=== PATIENT | male | born 1960 | race Caucasian/White ===

== ENCOUNTER 2020-05-01 16:30 | Inpatient (IN) | payer OTHER ==
[2020-05-01] MEDS ORDERED: ALBUTEROL SO4 2.5/IPRATROPIUM 0.5 INH SOL 3 ML VIAL.NEB. NEB ONE (17:30)
[2020-05-01] MEDS ORDERED: DEXAMETHASONE LIQUID 0.5 MG/5 ML PO ONE (17:46)
[2020-05-01] MEDS ORDERED: DEXAMETHASONE SOD PHOSPHATE 10 MG/1 ML VIAL ONE (17:47)
[2020-05-01] MEDS: ALBUTEROL SO4 0.083% IH SOL 2.5 MG/3 ML VIAL.NEB. NEB SCH ×4 (18:30→19:02)
[2020-05-01] MEDS ORDERED: ALBUTEROL SO4 0.083% IH SOL 2.5 MG/3 ML VIAL.NEB. NEB ONE ×2 (18:37→19:14)
[2020-05-01 20:25] LABS: BASO % 0.5 % (0-2.0); EOS % 17.3 % (0-4.5); HEMATOCRIT 48.6 % (35.4-49); HEMOGLOBIN 16.3 GM/dL (11.7-16.9); LYMPH % 30.9 % (8-40); MCH 30.8 pg (25.7-33.7); MCHC 33.5 g/dl (32.0-35.9); MEAN CELL VOLUME 91.8 fl (80-96); MEAN PLT VOLUME 7.8 fl (7.5-11.1); MONO % 4.4 % (3.8-10.2); NEUT % 46.9 % (42.8-82.8); PLATELET COUNT 266 K/MM3 (134-434); RBC 5.29 M/mm3 (4.00-5.60); RDW 14.3 % (11.9-15.9); WHITE BLOOD COUNT 8.1 K/mm3 (4.0-10.0)
[2020-05-01 20:43] LABS: CHLORIDE 99 mmol/L (98-107); POTASSIUM 4.6 mmol/L (3.5-5.1); SODIUM 134 mmol/L (136-145)
[2020-05-01 20:44] LABS: CALCIUM 9.3 mg/dL (8.5-10.1)
[2020-05-01 20:45] LABS: ANION GAP 5 MMOL/L (8-16); BLOOD UREA NITROGEN 22.8 mg/dL (7-18); CO2 30 mmol/L (21-32); GLUCOSE,RANDOM 93 mg/dL (74-106)
[2020-05-01 20:48] LABS: CREATININE 0.8 mg/dL (0.55-1.3)
[2020-05-02] MEDS ORDERED: ALBUTEROL SO4 2.5/IPRATROPIUM 0.5 INH SOL 3 ML VIAL.NEB. NEB PRN (00:37)
[2020-05-02] MEDS ORDERED: methylPREDNISolone NA SUCC 40 MG/1 ML VIAL ONE (01:05)
[2020-05-02] MEDS: methylPREDNISolone NA SUCC 40 MG/1 ML VIAL IVPUSH SCH ×3 (01:24→18:05)
[2020-05-02] MEDS: BUDESONIDE/FORMETEROL FUMARATE 80/4.5 mcg INHALER IH SCH ×3 (01:24→22:36)
[2020-05-02 06:49] LABS: BASO % 0.1 % (0-2.0); HEMATOCRIT 43.1 % (35.4-49); HEMOGLOBIN 14.8 GM/dL (11.7-16.9); LYMPH % 13.2 % (8-40); MCHC 34.3 g/dl (32.0-35.9); MEAN CELL VOLUME 90.6 fl (80-96); MEAN PLT VOLUME 7.2 fl (7.5-11.1); MONO % 1.2 % (3.8-10.2); NEUT % 85.5 % (42.8-82.8); PLATELET COUNT 263 K/MM3 (134-434); RBC 4.76 M/mm3 (4.00-5.60); RDW 14.3 % (11.9-15.9); WHITE BLOOD COUNT 7.5 K/mm3 (4.0-10.0)
[2020-05-02 07:10] LABS: POTASSIUM 4.4 mmol/L (3.5-5.1)
[2020-05-02 07:13] LABS: CALCIUM 9.3 mg/dL (8.5-10.1)
[2020-05-02 07:14] LABS: BLOOD UREA NITROGEN 23.3 mg/dL (7-18); MAGNESIUM 2.4 mg/dL (1.8-2.4)
[2020-05-02 07:16] LABS: CREATININE 0.9 mg/dL (0.55-1.3)
[2020-05-02 07:17] LABS: PHOSPHOROUS 4.3 mg/dL (2.5-4.9)
[2020-05-02 07:18] LABS: BILIRUBIN,TOTAL 0.5 mg/dL (0.2-1); TOT PROT 7.9 g/dl (6.4-8.2)
[2020-05-02 07:22] LABS: N-TERMINAL BNP 16.1 pg/ml (5-125)
[2020-05-02] MEDS: PANTOPRAZOLE 40 MG TABLET PO SCH (10:00)
[2020-05-02] MEDS: ENOXAPARIN NA (PORCINE) 40 MG/0.4 ML DISP.SYRIN SQ SCH (10:00)
[2020-05-02] MEDS ORDERED: PANTOPRAZOLE 40 MG TABLET ONE (10:41)
[2020-05-02] MEDS ORDERED: methylPREDNISolone NA SUCC 125 MG/2 ML VIAL ONE (10:41)
[2020-05-02] MEDS ORDERED: ENOXAPARIN NA (PORCINE) 40 MG/0.4 ML DISP.SYRIN SQ ONE (10:42)
[2020-05-02] MEDS ORDERED: ALBUTEROL SO4 2.5/IPRATROPIUM 0.5 INH SOL 3 ML VIAL.NEB. NEB ONE (11:23)
[2020-05-02 17:02] VITALS: BMI 29.2
[2020-05-02] MEDS: MONTELUKAST NA 10 MG TABLET PO SCH (21:42)
[2020-05-03] MEDS: methylPREDNISolone NA SUCC 40 MG/1 ML VIAL IVPUSH SCH ×3 (02:00→18:02)
[2020-05-03 09:03] LABS: BASO % 0.1 % (0-2.0); HEMATOCRIT 40.9 % (35.4-49); HEMOGLOBIN 13.8 GM/dL (11.7-16.9); LYMPH % 5.1 % (8-40); MCH 30.6 pg (25.7-33.7); MCHC 33.9 g/dl (32.0-35.9); MEAN CELL VOLUME 90.5 fl (80-96); MEAN PLT VOLUME 7.6 fl (7.5-11.1); MONO % 3.9 % (3.8-10.2); NEUT % 90.9 % (42.8-82.8); PLATELET COUNT 248 K/MM3 (134-434); RBC 4.52 M/mm3 (4.00-5.60)
[2020-05-03] MEDS: ENOXAPARIN NA (PORCINE) 40 MG/0.4 ML DISP.SYRIN SQ SCH (09:12)
[2020-05-03] MEDS: PANTOPRAZOLE 40 MG TABLET PO SCH (09:12)
[2020-05-03] MEDS: BUDESONIDE/FORMETEROL FUMARATE 80/4.5 mcg INHALER IH SCH ×2 (09:13→21:13)
[2020-05-03 09:23] LABS: POTASSIUM 4.3 mmol/L (3.5-5.1)
[2020-05-03 10:07] LABS: BLOOD UREA NITROGEN 25.4 mg/dL (7-18); CALCIUM 8.9 mg/dL (8.5-10.1)
[2020-05-03 10:15] LABS: CREATININE 0.7 mg/dL (0.55-1.3)
[2020-05-03 11:27] LABS: ANISOCYTOSIS 0; MACROCYTOSIS 0; PLATELET ESTIMATE NORMAL
[2020-05-03] MEDS: MONTELUKAST NA 10 MG TABLET PO SCH (21:13)
[2020-05-04] MEDS: methylPREDNISolone NA SUCC 40 MG/1 ML VIAL IVPUSH SCH ×3 (01:28→17:07)
[2020-05-04 07:53] LABS: HEMATOCRIT 43.1 % (35.4-49); HEMOGLOBIN 14.4 GM/dL (11.7-16.9); MCH 30.2 pg (25.7-33.7); MCHC 33.3 g/dl (32.0-35.9); MEAN CELL VOLUME 90.7 fl (80-96); MEAN PLT VOLUME 7.3 fl (7.5-11.1); PLATELET COUNT 247 K/MM3 (134-434); RBC 4.75 M/mm3 (4.00-5.60); WHITE BLOOD COUNT 17.5 K/mm3 (4.0-10.0)
[2020-05-04 08:11] LABS: POTASSIUM 4.2 mmol/L (3.5-5.1)
[2020-05-04 08:37] LABS: BLOOD UREA NITROGEN 20.4 mg/dL (7-18); CALCIUM 8.9 mg/dL (8.5-10.1)
[2020-05-04 08:42] LABS: CREATININE 0.7 mg/dL (0.55-1.3)
[2020-05-04] MEDS: ENOXAPARIN NA (PORCINE) 40 MG/0.4 ML DISP.SYRIN SQ SCH (09:59)
[2020-05-04] MEDS: PANTOPRAZOLE 40 MG TABLET PO SCH (09:59)
[2020-05-04] MEDS: BUDESONIDE/FORMETEROL FUMARATE 80/4.5 mcg INHALER IH SCH ×2 (10:00→21:55)
[2020-05-04] MEDS: MONTELUKAST NA 10 MG TABLET PO SCH (21:55)
[2020-05-04] MEDS ORDERED: MELATONIN 5 MG TABLETS PO ONE (22:15)
[2020-05-05] MEDS: methylPREDNISolone NA SUCC 40 MG/1 ML VIAL IVPUSH SCH ×2 (01:56→10:19)
[2020-05-05 08:33] LABS: HEMATOCRIT 43.6 % (35.4-49); HEMOGLOBIN 14.7 GM/dL (11.7-16.9); MCH 30.3 pg (25.7-33.7); MCHC 33.6 g/dl (32.0-35.9); MEAN CELL VOLUME 90.1 fl (80-96); MEAN PLT VOLUME 7.5 fl (7.5-11.1); PLATELET COUNT 264 K/MM3 (134-434); RBC 4.84 M/mm3 (4.00-5.60); RDW 13.9 % (11.9-15.9); WHITE BLOOD COUNT 15.3 K/mm3 (4.0-10.0)
[2020-05-05 09:01] LABS: POTASSIUM 4.5 mmol/L (3.5-5.1)
[2020-05-05 09:09] LABS: BLOOD UREA NITROGEN 21.6 mg/dL (7-18); CALCIUM 8.8 mg/dL (8.5-10.1)
[2020-05-05 09:12] LABS: CREATININE 0.7 mg/dL (0.55-1.3)
[2020-05-05] MEDS: BUDESONIDE/FORMETEROL FUMARATE 80/4.5 mcg INHALER IH SCH ×2 (10:18→21:51)
[2020-05-05] MEDS: PANTOPRAZOLE 40 MG TABLET PO SCH (10:19)
[2020-05-05] MEDS: ENOXAPARIN NA (PORCINE) 40 MG/0.4 ML DISP.SYRIN SQ SCH (10:19)
[2020-05-05] MEDS: MONTELUKAST NA 10 MG TABLET PO SCH (21:51)
[2020-05-06 06:02] VITALS: BP 134/88; PULSE 57; TEMP 98
[2020-05-06 07:12] LABS: HEMATOCRIT 45.1 % (35.4-49); MCH 30.3 pg (25.7-33.7); MCHC 33.3 g/dl (32.0-35.9); MEAN CELL VOLUME 91.1 fl (80-96); MEAN PLT VOLUME 7.7 fl (7.5-11.1); PLATELET COUNT 250 K/MM3 (134-434); RBC 4.95 M/mm3 (4.00-5.60); RDW 14.1 % (11.9-15.9); WHITE BLOOD COUNT 14.2 K/mm3 (4.0-10.0)
[2020-05-06 07:40] LABS: POTASSIUM 4.2 mmol/L (3.5-5.1)
[2020-05-06 07:47] LABS: CALCIUM 8.5 mg/dL (8.5-10.1)
[2020-05-06 07:48] LABS: BLOOD UREA NITROGEN 25.3 mg/dL (7-18)
[2020-05-06 07:51] LABS: CREATININE 0.7 mg/dL (0.55-1.3)
[2020-05-06] MEDS: ENOXAPARIN NA (PORCINE) 40 MG/0.4 ML DISP.SYRIN SQ SCH (09:47)
[2020-05-06] MEDS: BUDESONIDE/FORMETEROL FUMARATE 80/4.5 mcg INHALER IH SCH (09:47)
[2020-05-06] MEDS: PANTOPRAZOLE 40 MG TABLET PO SCH (09:47)
[2020-05-06] MEDS ORDERED: methylPREDNISolone NA SUCC 40 MG/1 ML VIAL IVPUSH SCH (10:00)
== END 2020-05-06 14:11 | disposition home or self-care (01) | DRG 141 ==
LOC: JER 16:30 → JERBED 18:53 → EDBD 18:53 → J8W 05-02 15:41
PROVIDERS: ADMIT Internal Medicine; ATTEND Internal Medicine
DX: J45.51 Severe persistent asthma with (acute) exacerbation (principal); J82.83 Eosinophilic asthma; R06.02 Shortness of breath
CPT/HCPCS: 36415; 71045-TC-FY; 71250-TC; 80048; 80053; 83735; 83880; 84100; 84484; 85025; 85027; 93005; 93010; 93306-TC; 94761; 99285-25; C9803; U0003

== ENCOUNTER 2021-07-04 18:13 | Inpatient (IN) | payer OTHER ==
[2021-07-04] MEDS ORDERED: ALBUTEROL SO4 2.5/IPRATROPIUM 0.5 INH SOL 3 ML VIAL.NEB. NEB ONE ×2 (20:28→20:30)
[2021-07-04] MEDS ORDERED: methylPREDNISolone NA SUCC 125 MG/2 ML VIAL IVPB ONE (20:28)
[2021-07-04] MEDS ORDERED: methylPREDNISolone NA SUCC 125 MG/2 ML VIAL ONE (20:31)
[2021-07-04 21:30] LABS: BASO % 0.4 % (0-2.0); EOS % 15.3 % (0-4.5); HEMATOCRIT 41.8 % (35.4-49); HEMOGLOBIN 14.1 GM/dL (11.7-16.9); LYMPH % 19.4 % (8-40); MCH 29.7 pg (25.7-33.7); MCHC 33.7 g/dl (32.0-35.9); MEAN CELL VOLUME 88.3 fl (80-96); MEAN PLT VOLUME 6.5 fl (7.5-11.1); MONO % 8.9 % (3.8-10.2); PLATELET COUNT 242 10^3/uL (134-434); RBC 4.73 M/mm3 (4.00-5.60); RDW 14.6 % (11.9-15.9); WHITE BLOOD COUNT 8.5 K/mm3 (4.0-10.0)
[2021-07-04 21:46] LABS: ALBUMIN 3.9 g/dl (3.4-5.0); BLOOD UREA NITROGEN 19.7 mg/dL (7-18)
[2021-07-04 21:49] LABS: CREATININE 0.6 mg/dL (0.55-1.3)
[2021-07-04 21:51] LABS: BILIRUBIN,TOTAL 0.2 mg/dL (0.2-1); TOT PROT 7.8 g/dl (6.4-8.2)
[2021-07-04 21:54] LABS: N-TERMINAL BNP 10.3 pg/ml (5-125)
[2021-07-04] MEDS ORDERED: PIPERACILLIN/TAZOB 3.375 GM 3.375 GM in DEXTROSE 5%-WATER - 50 ML IVPB ONE (23:39)
[2021-07-04] MEDS ORDERED: VANCOMYCIN 1 GM in D5W (PRE-DOCKED) 1,000 MG/250 ML IVPB ONE (23:39)
[2021-07-05] MEDS ORDERED: VANCOMYCIN 1 GRAM (PRE-DOCKED) 1,000 MG/250 ML BAG IVPB ONE (00:56)
[2021-07-05] MEDS ORDERED: PIPERACILLIN/TAZOB 3.375 GM 3.375 GM/50 ML BAG IVPB ONE (00:56)
[2021-07-05 01:10] LABS: URINE APPEARANCE CLEAR; URINE BILIRUBIN NEGATIVE (NEGATIVE); URINE COLOR YELLOW; URINE GLUCOSE (UA) NEGATIVE (NEGATIVE); URINE KETONE NEGATIVE (NEGATIVE); URINE LEUK ESTERASE NEGATIVE (NEGATIVE); URINE NITRITE NEGATIVE (NEGATIVE); URINE PROTEIN NEGATIVE (NEGATIVE); URINE UROBILINOGEN 0.2 mg/dL (0.2-1.0)
[2021-07-05] MEDS ORDERED: ALBUTEROL SO4 HFA INHALER IH PRN (02:14)
[2021-07-05] MEDS: ALBUTEROL SO4 2.5/IPRATROPIUM 0.5 INH SOL 3 ML VIAL.NEB. NEB SCH ×4 (04:13→23:49)
[2021-07-05 07:33] LABS: BASO % 0.1 % (0-2.0); EOS % 0.1 % (0-4.5); HEMATOCRIT 38.8 % (35.4-49); HEMOGLOBIN 13.1 GM/dL (11.7-16.9); LYMPH % 13.3 % (8-40); MCH 29.5 pg (25.7-33.7); MCHC 33.7 g/dl (32.0-35.9); MEAN CELL VOLUME 87.7 fl (80-96); MEAN PLT VOLUME 6.4 fl (7.5-11.1); MONO % 1.5 % (3.8-10.2); PLATELET COUNT 230 10^3/uL (134-434); RBC 4.43 M/mm3 (4.00-5.60); RDW 14.6 % (11.9-15.9); WHITE BLOOD COUNT 7.8 K/mm3 (4.0-10.0)
[2021-07-05 07:59] LABS: CALCIUM 8.4 mg/dL (8.5-10.1)
[2021-07-05 08:00] LABS: ALBUMIN 3.4 g/dl (3.4-5.0); MAGNESIUM 2.1 mg/dL (1.8-2.4)
[2021-07-05 08:01] LABS: PHOSPHOROUS 3.5 mg/dL (2.5-4.9)
[2021-07-05 08:02] LABS: CREATININE 0.6 mg/dL (0.55-1.3)
[2021-07-05 08:03] LABS: BILIRUBIN,TOTAL 0.8 mg/dL (0.2-1); TOT PROT 6.9 g/dl (6.4-8.2)
[2021-07-05] MEDS ORDERED: LORATADINE 10 MG TABLET ONE (09:09)
[2021-07-05] MEDS ORDERED: methylPREDNISolone NA SUCC 40 MG/1 ML VIAL ONE (09:10)
[2021-07-05] MEDS ORDERED: ENOXAPARIN NA (PORCINE) 40 MG/0.4 ML DISP.SYRIN SQ ONE (09:10)
[2021-07-05] MEDS: LORATADINE 10 MG TABLET PO SCH (09:22)
[2021-07-05] MEDS: ENOXAPARIN NA (PORCINE) 40 MG/0.4 ML DISP.SYRIN SQ SCH (09:22)
[2021-07-05] MEDS: methylPREDNISolone NA SUCC 40 MG/1 ML VIAL IVPUSH SCH ×2 (09:23→17:32)
[2021-07-05 11:32] VITALS: BMI 36.5
[2021-07-05] MEDS: CLOTRIMAZOLE 1% CREAM TP SCH ×2 (12:34→21:07)
[2021-07-05] MEDS: BUDESONIDE/FORMETEROL FUMARATE 160/4.5 mcg INHALER IH SCH ×2 (12:34→21:07)
[2021-07-05] MEDS: LACTATED RINGERS SOLUTION 1,000 ML/1,000 ML INFUS.BAG IV SCH (17:32)
[2021-07-05] MEDS: MONTELUKAST NA 10 MG TABLET PO SCH (21:07)
[2021-07-06] MEDS: methylPREDNISolone NA SUCC 40 MG/1 ML VIAL IVPUSH SCH ×3 (02:03→17:27)
[2021-07-06] MEDS: LACTATED RINGERS SOLUTION 1,000 ML/1,000 ML INFUS.BAG IV SCH ×2 (05:36→22:15)
[2021-07-06] MEDS: ALBUTEROL SO4 2.5/IPRATROPIUM 0.5 INH SOL 3 ML VIAL.NEB. NEB SCH ×5 (07:55→19:22)
[2021-07-06 09:21] LABS: BASO % 0.1 % (0-2.0); HEMATOCRIT 39.8 % (35.4-49); LYMPH % 6.1 % (8-40); MCHC 32.7 g/dl (32.0-35.9); MEAN CELL VOLUME 88.7 fl (80-96); MONO % 4.2 % (3.8-10.2); NEUT % 89.6 % (42.8-82.8); PLATELET COUNT 263 10^3/uL (134-434); RBC 4.48 M/mm3 (4.00-5.60); RDW 14.9 % (11.9-15.9); WHITE BLOOD COUNT 16.7 K/mm3 (4.0-10.0)
[2021-07-06 10:00] LABS: CALCIUM 8.6 mg/dL (8.5-10.1)
[2021-07-06 10:01] LABS: ALBUMIN 3.5 g/dl (3.4-5.0); BLOOD UREA NITROGEN 18.2 mg/dL (7-18); MAGNESIUM 2.4 mg/dL (1.8-2.4)
[2021-07-06 10:04] LABS: CREATININE 0.7 mg/dL (0.55-1.3); PHOSPHOROUS 3.4 mg/dL (2.5-4.9)
[2021-07-06 10:06] LABS: TOT PROT 7.2 g/dl (6.4-8.2)
[2021-07-06 10:11] LABS: BILIRUBIN,TOTAL 0.5 mg/dL (0.2-1)
[2021-07-06] MEDS: ENOXAPARIN NA (PORCINE) 40 MG/0.4 ML DISP.SYRIN SQ SCH (11:08)
[2021-07-06] MEDS: LORATADINE 10 MG TABLET PO SCH (11:08)
[2021-07-06] MEDS: BUDESONIDE/FORMETEROL FUMARATE 160/4.5 mcg INHALER IH SCH ×2 (11:09→22:33)
[2021-07-06] MEDS: CLOTRIMAZOLE 1% CREAM TP SCH ×2 (11:09→22:15)
[2021-07-06] MEDS: INSULIN SLIDING SCALE (NOVOLOG) 1 VIAL SQ SCH ×3 (12:09→22:37)
[2021-07-06] MEDS: FLUCONAZOLE 100 MG TABLET (UD) PO SCH (22:15)
[2021-07-06] MEDS: MONTELUKAST NA 10 MG TABLET PO SCH (22:15)
[2021-07-07] MEDS: ALBUTEROL SO4 2.5/IPRATROPIUM 0.5 INH SOL 3 ML VIAL.NEB. NEB SCH ×5 (00:05→20:13)
[2021-07-07] MEDS: methylPREDNISolone NA SUCC 40 MG/1 ML VIAL IVPUSH SCH ×3 (01:12→17:28)
[2021-07-07] MEDS: INSULIN SLIDING SCALE (NOVOLOG) 1 VIAL SQ SCH ×4 (06:44→23:44)
[2021-07-07 09:41] LABS: HEMATOCRIT 40.6 % (35.4-49); HEMOGLOBIN 13.2 GM/dL (11.7-16.9); LYMPH % 8.8 % (8-40); MCH 28.7 pg (25.7-33.7); MCHC 32.4 g/dl (32.0-35.9); MEAN CELL VOLUME 88.7 fl (80-96); MEAN PLT VOLUME 6.9 fl (7.5-11.1); MONO % 3.9 % (3.8-10.2); NEUT % 87.3 % (42.8-82.8); PLATELET COUNT 270 10^3/uL (134-434); RBC 4.57 M/mm3 (4.00-5.60); RDW 14.8 % (11.9-15.9); WHITE BLOOD COUNT 17.3 K/mm3 (4.0-10.0)
[2021-07-07 10:38] LABS: CALCIUM 8.7 mg/dL (8.5-10.1)
[2021-07-07 10:39] LABS: ALBUMIN 3.7 g/dl (3.4-5.0); BLOOD UREA NITROGEN 18.3 mg/dL (7-18); MAGNESIUM 2.7 mg/dL (1.8-2.4)
[2021-07-07 10:42] LABS: CREATININE 0.6 mg/dL (0.55-1.3); PHOSPHOROUS 3.2 mg/dL (2.5-4.9)
[2021-07-07 10:43] LABS: TOT PROT 7.4 g/dl (6.4-8.2)
[2021-07-07 10:44] LABS: BILIRUBIN,TOTAL 0.5 mg/dL (0.2-1)
[2021-07-07] MEDS: LORATADINE 10 MG TABLET PO SCH (10:44)
[2021-07-07] MEDS: FLUCONAZOLE 100 MG TABLET (UD) PO SCH (10:44)
[2021-07-07] MEDS: ENOXAPARIN NA (PORCINE) 40 MG/0.4 ML DISP.SYRIN SQ SCH (10:45)
[2021-07-07] MEDS: LACTATED RINGERS SOLUTION 1,000 ML/1,000 ML INFUS.BAG IV SCH ×2 (11:00→13:37)
[2021-07-07] MEDS: BUDESONIDE/FORMETEROL FUMARATE 160/4.5 mcg INHALER IH SCH ×2 (11:01→23:45)
[2021-07-07] MEDS: CLOTRIMAZOLE 1% CREAM TP SCH ×4 (11:02→23:48)
[2021-07-07] MEDS: MONTELUKAST NA 10 MG TABLET PO SCH (23:45)
[2021-07-08] MEDS: ALBUTEROL SO4 2.5/IPRATROPIUM 0.5 INH SOL 3 ML VIAL.NEB. NEB SCH ×5 (00:22→19:46)
[2021-07-08] MEDS: methylPREDNISolone NA SUCC 40 MG/1 ML VIAL IVPUSH SCH ×3 (02:14→17:13)
[2021-07-08] MEDS: INSULIN SLIDING SCALE (NOVOLOG) 1 VIAL SQ SCH ×4 (06:59→23:07)
[2021-07-08 08:58] LABS: HEMATOCRIT 39.7 % (35.4-49); HEMOGLOBIN 13.1 GM/dL (11.7-16.9); MCH 28.9 pg (25.7-33.7); MCHC 32.9 g/dl (32.0-35.9); MEAN CELL VOLUME 87.9 fl (80-96); PLATELET COUNT 263 10^3/uL (134-434); RBC 4.52 M/mm3 (4.00-5.60); RDW 15.1 % (11.9-15.9); WHITE BLOOD COUNT 14.5 K/mm3 (4.0-10.0)
[2021-07-08 09:10] LABS: ALBUMIN 3.4 g/dl (3.4-5.0); BLOOD UREA NITROGEN 17.6 mg/dL (7-18)
[2021-07-08 09:11] LABS: CALCIUM 8.5 mg/dL (8.5-10.1)
[2021-07-08 09:12] LABS: MAGNESIUM 2.7 mg/dL (1.8-2.4)
[2021-07-08 09:13] LABS: CREATININE 0.6 mg/dL (0.55-1.3); PHOSPHOROUS 3.2 mg/dL (2.5-4.9)
[2021-07-08 09:14] LABS: BILIRUBIN,TOTAL 0.5 mg/dL (0.2-1); TOT PROT 6.9 g/dl (6.4-8.2)
[2021-07-08 10:18] LABS: ANISOCYTOSIS 1+; MACROCYTOSIS 0; PLATELET ESTIMATE NORMAL
[2021-07-08] MEDS: FLUCONAZOLE 100 MG TABLET (UD) PO SCH (10:25)
[2021-07-08] MEDS: CLOTRIMAZOLE 1% CREAM TP SCH ×2 (10:25→23:08)
[2021-07-08] MEDS: ENOXAPARIN NA (PORCINE) 40 MG/0.4 ML DISP.SYRIN SQ SCH (10:25)
[2021-07-08] MEDS: LORATADINE 10 MG TABLET PO SCH (10:25)
[2021-07-08] MEDS: BUDESONIDE/FORMETEROL FUMARATE 160/4.5 mcg INHALER IH SCH ×2 (10:26→23:08)
[2021-07-08] MEDS ORDERED: ALBUTEROL SO4 0.083% IH SOL 2.5 MG/3 ML VIAL.NEB. NEB PRN (20:24)
[2021-07-08] MEDS: MONTELUKAST NA 10 MG TABLET PO SCH (23:07)
[2021-07-09] MEDS: methylPREDNISolone NA SUCC 40 MG/1 ML VIAL IVPUSH SCH ×3 (01:45→18:36)
[2021-07-09] MEDS: INSULIN SLIDING SCALE (NOVOLOG) 1 VIAL SQ SCH ×4 (06:34→21:45)
[2021-07-09] MEDS: ALBUTEROL SO4 2.5/IPRATROPIUM 0.5 INH SOL 3 ML VIAL.NEB. NEB SCH ×4 (07:25→19:41)
[2021-07-09] MEDS: CLOTRIMAZOLE 1% CREAM TP SCH ×2 (11:42→21:45)
[2021-07-09] MEDS: FLUCONAZOLE 100 MG TABLET (UD) PO SCH (11:42)
[2021-07-09] MEDS: ENOXAPARIN NA (PORCINE) 40 MG/0.4 ML DISP.SYRIN SQ SCH (11:42)
[2021-07-09] MEDS: LORATADINE 10 MG TABLET PO SCH (11:43)
[2021-07-09] MEDS: BUDESONIDE/FORMETEROL FUMARATE 160/4.5 mcg INHALER IH SCH ×2 (11:48→21:45)
[2021-07-09] MEDS: MONTELUKAST NA 10 MG TABLET PO SCH (21:45)
[2021-07-10] MEDS: methylPREDNISolone NA SUCC 40 MG/1 ML VIAL IVPUSH SCH ×3 (01:18→17:33)
[2021-07-10] MEDS: INSULIN SLIDING SCALE (NOVOLOG) 1 VIAL SQ SCH ×4 (06:00→21:13)
[2021-07-10] MEDS: ALBUTEROL SO4 2.5/IPRATROPIUM 0.5 INH SOL 3 ML VIAL.NEB. NEB SCH ×4 (08:52→20:31)
[2021-07-10] MEDS: LORATADINE 10 MG TABLET PO SCH (09:09)
[2021-07-10] MEDS: ENOXAPARIN NA (PORCINE) 40 MG/0.4 ML DISP.SYRIN SQ SCH (09:09)
[2021-07-10] MEDS: BUDESONIDE/FORMETEROL FUMARATE 160/4.5 mcg INHALER IH SCH ×2 (09:09→21:15)
[2021-07-10] MEDS: CLOTRIMAZOLE 1% CREAM TP SCH ×2 (09:10→21:12)
[2021-07-10 14:41] LABS: ARTERIAL BLOOD GAS BASE EXCESS 0.5 mmol/L (-2-2); ARTERIAL BLOOD GAS PO2 73.3 mmHg (80-100); ARTERIAL BLOOD GAS pH 7.414 (7.350-7.450)
[2021-07-10 14:42] LABS: ALLENS TEST POSITIVE
[2021-07-10] MEDS: TIOTROPIUM BROMIDE 2.5 MCG (SPIRIVA) RESPIMAT INHALER IH SCH (21:12)
[2021-07-10] MEDS: MONTELUKAST NA 10 MG TABLET PO SCH (21:14)
[2021-07-11] MEDS: methylPREDNISolone NA SUCC 40 MG/1 ML VIAL IVPUSH SCH ×2 (01:31→09:11)
[2021-07-11] MEDS: INSULIN SLIDING SCALE (NOVOLOG) 1 VIAL SQ SCH ×3 (06:10→17:04)
[2021-07-11] MEDS: ALBUTEROL SO4 2.5/IPRATROPIUM 0.5 INH SOL 3 ML VIAL.NEB. NEB SCH ×3 (08:45→16:22)
[2021-07-11] MEDS: ENOXAPARIN NA (PORCINE) 40 MG/0.4 ML DISP.SYRIN SQ SCH (09:11)
[2021-07-11] MEDS: LORATADINE 10 MG TABLET PO SCH (09:11)
[2021-07-11] MEDS: TIOTROPIUM BROMIDE 2.5 MCG (SPIRIVA) RESPIMAT INHALER IH SCH (09:13)
[2021-07-11] MEDS: BUDESONIDE/FORMETEROL FUMARATE 160/4.5 mcg INHALER IH SCH (09:14)
[2021-07-11] MEDS: CLOTRIMAZOLE 1% CREAM TP SCH (09:15)
[2021-07-11 13:30] VITALS: BP 147/98; PULSE 86; TEMP 98.9
[2021-07-12] MEDS ORDERED: predniSONE 20 MG TABLET (UD) PO SCH (10:00)
== END 2021-07-11 17:06 | disposition home or self-care (01) | DRG 142 ==
LOC: JER 18:13 → JERBED 07-05 01:30 → J5S 07-05 11:02
PROVIDERS: ADMIT Hospitalist; ATTEND Internal Medicine
DX: J82.83 Eosinophilic asthma (principal); E11.43 Type 2 diabetes mellitus with diabetic autonomic (poly)neuropathy; M87.059 Idiopathic aseptic necrosis of unspecified femur; E11.9 Type 2 diabetes mellitus without complications; N50.89 Other specified disorders of the male genital organs; E66.9 Obesity, unspecified; Z68.36 Body mass index [BMI] 36.0-36.9, adult; B35.6 Tinea cruris; K31.84 Gastroparesis
CPT/HCPCS: 36415; 36600; 71045-TC-FY; 72193-TC; 76870-TC; 80053; 81003; 82803; 82962; 83036; 83605; 83735; 83880; 84100; 84484; 85025; 87086; 93005; 93010; 93970-TC; 94150; 94640; 94761; 99285-25; C9803-CS; Q9967; U0003; U0005

== ENCOUNTER 2021-07-23 19:57 | Emergency (ER) | payer OTHER ==
[2021-07-23 20:21] VITALS: BP 125/75; PULSE 65; BMI 35.2
== END 2021-07-24 01:02 | disposition home or self-care (01) ==
LOC: JER 19:57
DX: M25.562 Pain in left knee (principal)
CPT/HCPCS: 73562-TC-LT-FY; 93971-TC; 99284-25

== ENCOUNTER 2022-02-17 18:28 | Inpatient (IN) | payer OTHER ==
[2022-02-17 18:44] VITALS: BMI 35.2
[2022-02-17] MEDS ORDERED: VANCOMYCIN 1 GM in D5W (PRE-DOCKED) 1,000 MG/250 ML IVPB ONE (19:52)
[2022-02-17] MEDS ORDERED: PIPERACILLIN/TAZOB 3.375 GM 3.375 GM in DEXTROSE 5%-WATER - 50 ML IVPB ONE (19:52)
[2022-02-17] MEDS ORDERED: ACETAMINOPHEN 500 MG TABLET (FP) PO ONE (19:57)
[2022-02-17] MEDS ORDERED: ALBUTEROL SO4 2.5/IPRATROPIUM 0.5 INH SOL 3 ML VIAL.NEB. NEB ONE (20:09)
[2022-02-17] MEDS ORDERED: VANCOMYCIN/WATER FOR INJ (PEG) 1,000 MG/200 ML BAG IVPB ONE (20:09)
[2022-02-17] MEDS ORDERED: PIPERACILLIN/TAZOB 3.375 GM 3.375 GM/50 ML BAG IVPB ONE (20:10)
[2022-02-17] MEDS: ALBUTEROL SO4 2.5/IPRATROPIUM 0.5 INH SOL 3 ML VIAL.NEB. NEB SCH ×2 (20:19→20:59)
[2022-02-17] MEDS ORDERED: ACETAMINOPHEN 500 MG TABLET (FP) ONE (20:20)
[2022-02-17 20:31] LABS: BASO % 0.3 % (0-2.0); EOS % 3.1 % (0-4.5); HEMATOCRIT 40.1 % (35.4-49); HEMOGLOBIN 12.9 GM/dL (11.7-16.9); INR 1.16 (0.83-1.09); MCH 28.4 pg (25.7-33.7); MCHC 32.3 g/dl (32.0-35.9); MEAN CELL VOLUME 88.1 fl (80-96); MEAN PLT VOLUME 6.6 fl (7.5-11.1); NEUT % 73.6 % (42.8-82.8); PLATELET COUNT 331 10^3/uL (134-434); PROTHROMBIN TIME (PATIENT) 13.4 SEC (9.7-13.0); RBC 4.55 M/mm3 (4.00-5.60); RDW 14.7 % (11.9-15.9); WHITE BLOOD COUNT 12.4 K/mm3 (4.0-10.0)
[2022-02-17 20:48] LABS: ALBUMIN 3.8 g/dl (3.4-5.0); CALCIUM 8.9 mg/dL (8.5-10.1)
[2022-02-17 20:51] LABS: CREATININE 0.7 mg/dL (0.55-1.3)
[2022-02-17 20:53] LABS: BILIRUBIN,TOTAL 0.7 mg/dL (0.2-1); TOT PROT 8.1 g/dl (6.4-8.2)
[2022-02-17] MEDS ORDERED: methylPREDNISolone NA SUCC 125 MG/2 ML VIAL IVPUSH ONE (23:08)
[2022-02-17] MEDS ORDERED: methylPREDNISolone NA SUCC 125 MG/2 ML VIAL ONE (23:14)
[2022-02-18] MEDS ORDERED: CLINDAMYCIN 600MG PREMIX IVPB 600 MG/50 ML BAG IVPB ONE ×2 (02:38→08:37)
[2022-02-18] MEDS: CLINDAMYCIN 600MG PREMIX IVPB 600 MG/50 ML BAG IVPB SCH ×2 (02:40→09:05)
[2022-02-18] MEDS ORDERED: PIPERACILLIN/TAZOB 3.375 GM 3.375 GM/50 ML BAG IVPB ONE ×2 (02:54→08:37)
[2022-02-18] MEDS: PIPERACILLIN/TAZOB 3.375 GM 3.375 GM in DEXTROSE 5%-WATER - 50 ML IVPB SCH ×3 (03:05→18:07)
[2022-02-18] MEDS ORDERED: ALBUTEROL SO4 2.5/IPRATROPIUM 0.5 INH SOL 3 ML VIAL.NEB. NEB PRN (04:00)
[2022-02-18] MEDS ORDERED: ACETAMINOPHEN 325 MG TABLET (FP) PO PRN (06:45)
[2022-02-18] MEDS ORDERED: ALBUTEROL SO4 HFA INHALER IH PRN (06:46)
[2022-02-18] MEDS: INSULIN SLIDING SCALE (NOVOLOG) 1 VIAL SQ SCH ×4 (08:32→22:43)
[2022-02-18] MEDS ORDERED: ALBUTEROL SO4 2.5/IPRATROPIUM 0.5 INH SOL 3 ML VIAL.NEB. NEB ONE ×3 (08:36→16:54)
[2022-02-18] MEDS ORDERED: ENOXAPARIN NA (PORCINE) 40 MG/0.4 ML DISP.SYRIN SQ ONE (08:37)
[2022-02-18 08:47] LABS: BASO % 0.1 % (0-2.0); HEMATOCRIT 39.3 % (35.4-49); HEMOGLOBIN 12.9 GM/dL (11.7-16.9); LYMPH % 13.7 % (8-40); MCH 29.2 pg (25.7-33.7); MCHC 32.9 g/dl (32.0-35.9); MEAN CELL VOLUME 88.8 fl (80-96); MEAN PLT VOLUME 6.8 fl (7.5-11.1); MONO % 2.4 % (3.8-10.2); NEUT % 83.8 % (42.8-82.8); PLATELET COUNT 311 10^3/uL (134-434); RBC 4.42 M/mm3 (4.00-5.60); RDW 14.3 % (11.9-15.9); WHITE BLOOD COUNT 9.2 K/mm3 (4.0-10.0)
[2022-02-18 08:59] LABS: BLOOD UREA NITROGEN 15.7 mg/dL (7-18)
[2022-02-18 09:00] LABS: CALCIUM 8.8 mg/dL (8.5-10.1); MAGNESIUM 2.5 mg/dL (1.8-2.4)
[2022-02-18 09:01] LABS: ALBUMIN 3.2 g/dl (3.4-5.0)
[2022-02-18 09:03] LABS: CREATININE 0.6 mg/dL (0.55-1.3)
[2022-02-18 09:04] LABS: PHOSPHOROUS 3.9 mg/dL (2.5-4.9)
[2022-02-18 09:05] LABS: BILIRUBIN,TOTAL 0.8 mg/dL (0.2-1); TOT PROT 7.3 g/dl (6.4-8.2)
[2022-02-18] MEDS: ALBUTEROL SO4 2.5/IPRATROPIUM 0.5 INH SOL 3 ML VIAL.NEB. NEB SCH ×4 (09:05→20:39)
[2022-02-18] MEDS: CLOTRIMAZOLE 1% CREAM TP SCH ×2 (09:15→22:44)
[2022-02-18] MEDS: ENOXAPARIN NA (PORCINE) 40 MG/0.4 ML DISP.SYRIN SQ SCH (09:20)
[2022-02-18] MEDS: BUDESONIDE/FORMETEROL FUMARATE 80/4.5 mcg INHALER IH SCH ×2 (09:52→22:45)
[2022-02-18] MEDS ORDERED: methylPREDNISolone NA SUCC 40 MG/1 ML VIAL IVPUSH SCH ×2 (10:00)
[2022-02-18] MEDS ORDERED: methylPREDNISolone NA SUCC 40 MG/1 ML VIAL IVPB SCH (10:00)
[2022-02-18] MEDS: ATORVASTATIN CA 20 MG TABLET (FP) PO SCH (22:44)
[2022-02-19] MEDS ORDERED: PIPERACILLIN/TAZOB 3.375 GM 3.375 GM in DEXTROSE 5%-WATER - 50 ML IVPB SCH (02:00)
[2022-02-19] MEDS: PIPERACILLIN/TAZOB 3.375 GM 3.375 GM in DEXTROSE 5%-WATER - 50 ML IVPB SCH ×3 (02:20→18:17)
[2022-02-19] MEDS: INSULIN SLIDING SCALE (NOVOLOG) 1 VIAL SQ SCH ×4 (06:04→21:25)
[2022-02-19] MEDS: ALBUTEROL SO4 2.5/IPRATROPIUM 0.5 INH SOL 3 ML VIAL.NEB. NEB SCH ×4 (08:51→20:38)
[2022-02-19 10:00] LABS: BASO % 0.1 % (0-2.0); EOS % 0.1 % (0-4.5); HEMATOCRIT 37.8 % (35.4-49); HEMOGLOBIN 12.4 GM/dL (11.7-16.9); LYMPH % 10.9 % (8-40); MCH 28.8 pg (25.7-33.7); MCHC 32.7 g/dl (32.0-35.9); MEAN CELL VOLUME 88.1 fl (80-96); MONO % 8.3 % (3.8-10.2); NEUT % 80.6 % (42.8-82.8); PLATELET COUNT 328 10^3/uL (134-434); RBC 4.29 M/mm3 (4.00-5.60); RDW 14.7 % (11.9-15.9); WHITE BLOOD COUNT 14.8 K/mm3 (4.0-10.0)
[2022-02-19 10:22] LABS: CALCIUM 8.8 mg/dL (8.5-10.1)
[2022-02-19 10:23] LABS: MAGNESIUM 2.5 mg/dL (1.8-2.4)
[2022-02-19 10:26] LABS: CREATININE 0.7 mg/dL (0.55-1.3); PHOSPHOROUS 3.2 mg/dL (2.5-4.9)
[2022-02-19 10:27] LABS: TOT PROT 6.8 g/dl (6.4-8.2)
[2022-02-19 10:28] LABS: BILIRUBIN,TOTAL 0.6 mg/dL (0.2-1)
[2022-02-19] MEDS: BUDESONIDE/FORMETEROL FUMARATE 80/4.5 mcg INHALER IH SCH ×2 (11:36→21:23)
[2022-02-19] MEDS: ENOXAPARIN NA (PORCINE) 40 MG/0.4 ML DISP.SYRIN SQ SCH (11:37)
[2022-02-19] MEDS: CLOTRIMAZOLE 1% CREAM TP SCH ×2 (12:45→21:23)
[2022-02-19] MEDS ORDERED: INSULIN (NOVOLOG) ASPART 100 UNITS/ML 10ML VIAL ONE (20:58)
[2022-02-19] MEDS ORDERED: INSULIN (LEVEMIR) 100 UNITS/ML UNITS SQ ONE (20:59)
[2022-02-19] MEDS: ATORVASTATIN CA 20 MG TABLET (FP) PO SCH (21:19)
[2022-02-19 23:08] VITALS: RESP 20
[2022-02-20] MEDS: PIPERACILLIN/TAZOB 3.375 GM 3.375 GM in DEXTROSE 5%-WATER - 50 ML IVPB SCH ×3 (01:51→17:49)
[2022-02-20] MEDS: INSULIN SLIDING SCALE (NOVOLOG) 1 VIAL SQ SCH ×4 (06:28→22:49)
[2022-02-20] MEDS: ALBUTEROL SO4 2.5/IPRATROPIUM 0.5 INH SOL 3 ML VIAL.NEB. NEB SCH ×4 (07:21→20:05)
[2022-02-20 09:40] LABS: BASO % 0.3 % (0-2.0); EOS % 3.6 % (0-4.5); HEMATOCRIT 38.2 % (35.4-49); HEMOGLOBIN 12.7 GM/dL (11.7-16.9); LYMPH % 23.4 % (8-40); MCH 29.3 pg (25.7-33.7); MCHC 33.3 g/dl (32.0-35.9); MEAN PLT VOLUME 6.6 fl (7.5-11.1); MONO % 10.4 % (3.8-10.2); NEUT % 62.3 % (42.8-82.8); PLATELET COUNT 336 10^3/uL (134-434); RBC 4.33 M/mm3 (4.00-5.60); RDW 14.3 % (11.9-15.9)
[2022-02-20 09:53] LABS: CALCIUM 8.5 mg/dL (8.5-10.1)
[2022-02-20 09:54] LABS: ALBUMIN 3.1 g/dl (3.4-5.0); BLOOD UREA NITROGEN 18.4 mg/dL (7-18); MAGNESIUM 2.5 mg/dL (1.8-2.4)
[2022-02-20 09:57] LABS: CREATININE 0.6 mg/dL (0.55-1.3); PHOSPHOROUS 3.7 mg/dL (2.5-4.9)
[2022-02-20 09:58] LABS: TOT PROT 6.8 g/dl (6.4-8.2)
[2022-02-20 09:59] LABS: BILIRUBIN,TOTAL 0.5 mg/dL (0.2-1)
[2022-02-20] MEDS: BUDESONIDE/FORMETEROL FUMARATE 80/4.5 mcg INHALER IH SCH ×2 (10:10→22:51)
[2022-02-20] MEDS: ENOXAPARIN NA (PORCINE) 40 MG/0.4 ML DISP.SYRIN SQ SCH (10:11)
[2022-02-20] MEDS: CLOTRIMAZOLE 1% CREAM TP SCH ×2 (10:14→22:51)
[2022-02-20] MEDS: ATORVASTATIN CA 20 MG TABLET (FP) PO SCH (22:49)
[2022-02-21] MEDS: PIPERACILLIN/TAZOB 3.375 GM 3.375 GM in DEXTROSE 5%-WATER - 50 ML IVPB SCH ×2 (02:51→11:28)
[2022-02-21] MEDS: INSULIN SLIDING SCALE (NOVOLOG) 1 VIAL SQ SCH ×2 (07:33→12:09)
[2022-02-21] MEDS: ALBUTEROL SO4 2.5/IPRATROPIUM 0.5 INH SOL 3 ML VIAL.NEB. NEB SCH ×3 (08:17→15:25)
[2022-02-21 09:03] LABS: BASO % 0.6 % (0-2.0); EOS % 8.4 % (0-4.5); HEMATOCRIT 42.5 % (35.4-49); HEMOGLOBIN 14.5 GM/dL (11.7-16.9); LYMPH % 22.8 % (8-40); MCH 29.7 pg (25.7-33.7); MCHC 34.2 g/dl (32.0-35.9); MEAN CELL VOLUME 86.9 fl (80-96); MEAN PLT VOLUME 7.1 fl (7.5-11.1); MONO % 8.8 % (3.8-10.2); NEUT % 59.4 % (42.8-82.8); PLATELET COUNT 388 10^3/uL (134-434); RDW 14.8 % (11.9-15.9); WHITE BLOOD COUNT 8.8 K/mm3 (4.0-10.0)
[2022-02-21] MEDS: BUDESONIDE/FORMETEROL FUMARATE 80/4.5 mcg INHALER IH SCH (11:29)
[2022-02-21] MEDS: ENOXAPARIN NA (PORCINE) 40 MG/0.4 ML DISP.SYRIN SQ SCH (11:29)
[2022-02-21] MEDS: CLOTRIMAZOLE 1% CREAM TP SCH (11:55)
[2022-02-21 12:10] LABS: CALCIUM 9.2 mg/dL (8.5-10.1)
[2022-02-21 12:11] LABS: ALBUMIN 3.7 g/dl (3.4-5.0); BLOOD UREA NITROGEN 14.1 mg/dL (7-18); MAGNESIUM 2.6 mg/dL (1.8-2.4)
[2022-02-21 12:13] LABS: CREATININE 0.7 mg/dL (0.55-1.3); PHOSPHOROUS 4.7 mg/dL (2.5-4.9)
[2022-02-21 12:14] LABS: BILIRUBIN,TOTAL 0.7 mg/dL (0.2-1)
[2022-02-21 15:40] VITALS: BP 142/83; PULSE 67; TEMP 98.1
== END 2022-02-21 16:08 | disposition home or self-care (01) | DRG 383 ==
LOC: JER 18:28 → JERBED 21:43 → J8W 02-18 17:45
PROVIDERS: ADMIT Internal Medicine; ATTEND Internal Medicine
DX: L03.116 Cellulitis of left lower limb (principal); B35.6 Tinea cruris; E11.9 Type 2 diabetes mellitus without complications; E78.5 Hyperlipidemia, unspecified; J45.909 Unspecified asthma, uncomplicated
CPT/HCPCS: 0241U-QW; 36415; 71046-TC-FY; 73562-TC-LT-FY; 80048; 80053; 80061; 82550; 82553; 82962; 83036; 83735; 84100; 85025; 85610; 87040; 93005; 93010; 93971-TC; 94640; 99285-25